=== PATIENT | female | born 1995 | race African-American/Black ===

== ENCOUNTER 2019-01-27 11:28 | Emergency (ER) | payer MEDICAID, SELFPAY ==
[~2019-01-27] VITALS: Ht 172.7 cm; Wt 72.6 kg
[~2019-01-27 11:28] MED LIST: COLACE100 MG ORAL; IBUPROFEN600 MG ORAL; NORCO 5-325 TA1 EACH ORAL; ZOFRAN ODT4 MG ORAL
--- NOTE | 2019-01-27 11:29 | NUR ---
ED Nurse Note: PT BROUGHT IN BY [id number] BUT PT IS NOT HOMELESS. AOX4. PT C/O LOWER RIGHT QUADRANT ABDOMINAL PAIN, 10/10, NAUSEA, AND 3 EPISODES OF VOMITING X THIS AM. PT STATES VOMIT HAS BEEN CLEAR. PT DENIES DIARRHEA. ACTIVE BOWEL SOUNDS IN ALL QUADRANTS. ABDOMEN NONDISTENDED AND NONTENDER TO PALPATION. LAST BM X YESTERDAY WHICH PT STATES WAS FORMED.
[2019-01-27 11:34] VITALS: BP 114/76
[2019-01-27] MEDS ORDERED: ALBUTEROL2.5 MG/3 M INH (11:46)
--- NOTE | 2019-01-27 11:50 | Emergency Room Report ---
History of Present Illness General Chief Complaint: Flu Like Symptoms Source: Patient, EMS Present Illness HPI Patient presents with complaints of diffuse abdominal discomfort nausea vomiting Reports that she also has diffuse body ache Denies any chest pain or shortness of breath Also complains of a headache Denies any neck pain or photophobia denies any fevers Denies any dysuria or frequency Patient reports that last night she felt fine when she went to bed this morning upon up aching she has started to feel more ill Allergies: Coded Allergies: No Known Allergies (Unverified , 10/06/14) Patient History Past Medical History: see triage record Pertinent Family History: none Last Menstrual Period: 12/16/18 Reviewed Nursing Documentation: PMH: Agreed; PSxH: Agreed Nursing Documentation-PMH Past Medical History: No History, Except For Hx Asthma: Yes Review of Systems All Other Systems: negative except mentioned in HPI Physical Exam Vital Signs Date Time Temp Pulse Resp B/P (MAP) Pulse Ox O2 Delivery O2 Flow Rate FiO2 01/27/19 11:25 98.2 58 16 110/70 100 Room Air Sp02 EP Interpretation: reviewed, normal General Appearance: well appearing, no apparent distress Head: normocephalic, atraumatic Eyes: bilateral eye PERRL, bilateral eye EOMI ENT: hearing grossly normal, normal pharynx, TMs + canals normal, uvula midline Neck: full range of motion, supple, no meningismus, no bony tend Respiratory: lungs clear, normal breath sounds, no rhonchi, no respiratory distress, no retraction, no accessory muscle use Cardiovascular #1: normal peripheral pulses, regular rate, rhythm, no edema, no gallop, no JVD, no murmur Gastrointestinal: normal bowel sounds, non tender, soft, no mass, no organomegaly, non-distended, no guarding, no hernia, no pulsatile mass, no rebound Genitourinary: no CVA tenderness Musculoskeletal: normal inspection Neurologic: oriented x3, responsive, systems mechanic III-XII nml as tested, motor strength/ tone normal, sensory intact Psychiatric: mood/affect normal Skin: normal color, no rash, warm/dry, palpation normal Lymphatic: normal inspection, no adenopathy Medical Decision Making Diagnostic Impression: Primary Impression: ER Course With the patient's history and examination, multiple differentials considered, including but not limited to , ectopic , ovarian torsion, gastritis, cholecystitis, pancreatitis, appendicitis Patient's urine sample does show positive therefore this was followed by ultrasound and blood work Patient does not have any vaginal bleeding type and rh was not performed Ultrasound shows 7 week And patient requires close outpatient follow-up CBC normal Chemistry showing elevated beta Quant at over 64,000 Urine sample no acute disease CT/MRI/US Diagnostic Results CT/MRI/US Diagnostic Results : Impression pelvic ultrasoundImpression: 7 week one day, by crown-rump length measurement, single live intrauterine . No unusual features Small amount of cul-de-sac fluid, presumably physiologic Last Vital Signs Date Time Temp Pulse Resp B/P (MAP) Pulse Ox O2 Delivery O2 Flow Rate FiO2 01/27/19 11:34 98.3 62 18 114/76 100 Room Air Status: improved Disposition: HOME, SELF-CARE Condition: Improved Additional Instructions: Patient is provided with the discharge instructions notified to follow up with primary doctor in the next 2-3 days otherwise return to the er with any worsening symptoms. Please note that this report is being documented using [employer] technology. This can lead to erroneous entry secondary to incorrect interpretation by the dictating instrument. Ashlee Elkins DO Jan 27, 2019 11:50
--- NOTE | 2019-01-27 12:00 | NUR ---
ED Nurse Note: BLOOD AND URINE COLLECTED AND SENT TO LAB.
[2019-01-27 12:25] LABS: BASOPHILS % (AUTO) 1.3 % (0.0-2.0); EOSINOPHILS % (AUTO) 0.5 % (0.0-3.0); HEMATOCRIT 38.4 % (37.0-47.0); HEMOGLOBIN 12.4 G/DL (12.0-16.0); LYMPHOCYTES % (AUTO) 21.4 % (20.0-45.0); MEAN CORPUSCULAR VOLUME 79 FL (80-99); MONOCYTES % (AUTO) 8.5 % (1.0-10.0); NEUTROPHILS % (AUTO) 68.2 % (45.0-75.0); PLATELET COUNT 228 K/UL (150-450); RED BLOOD COUNT 4.88 M/UL (4.20-5.40); WHITE BLOOD COUNT 5.1 K/UL (4.8-10.8)
[2019-01-27 12:26] LABS: APPEARANCE,URINE SLIGHTLY CLOUDY; BILIRUBIN, URINE NEGATIVE (NEGATIVE); GLUCOSE, URINE (UA) NEGATIVE (NEGATIVE); KETONES,URINE 4+ (NEGATIVE); LEUKOCYTE ESTERASE ,URINE 1+ (NEGATIVE); NITRITE,URINE NEGATIVE (NEGATIVE); PH,URINE 6.5 (4.5-8.0); PROTEIN,URINE 1+ (NEGATIVE); UROBILINOGEN,URINE 1 MG/DL (0.0-1.0)
[2019-01-27 12:27] LABS: COLOR,URINE YELLOW
[2019-01-27 12:28] LABS: ANION GAP 7 mmol/L (5-15); BLOOD UREA NITROGEN 9 mg/dL (7-18); CALCIUM 9.2 MG/DL (8.5-10.1); CARBON DIOXIDE 25 MMOL/L (21-32); CHLORIDE 103 MMOL/L (98-107); CREATININE 0.8 MG/DL (0.55-1.30); POTASSIUM 3.6 MMOL/L (3.5-5.1); SODIUM 135 MMOL/L (136-145)
[2019-01-27 12:33] LABS: ALANINE AMINOTRANSFERASE 15 U/L (12-78); ALBUMIN 3.7 G/DL (3.4-5.0); ALKALINE PHOSPHATASE 29 U/L (46-116); ASPARTATE AMINO TRANSFERASE 12 U/L (15-37); BILIRUBIN,TOTAL 0.3 MG/DL (0.2-1.0)
--- NOTE | 2019-01-27 14:01 | NUR ---
ED Nurse Note: pt went down for US by wheelchair.
[2019-01-27 15:05] VITALS: BP 127/78
--- NOTE | 2019-01-27 15:06 | NUR ---
ER DISCHARGE NOTE: Patient is cleared to be discharged per ERMD, pt is aox4, on room air, with stable vital signs. pt was given dc and prescription instructions, pt was able to verbalize understanding, pt id band and removed. pt is able to ambulate with steady gait. pt took all belongings.
--- NOTE | 2019-01-27 16:12 | Diagnostic Imaging Report ---
Indication: Pelvic pain, positive test Technique: Transabdominal and transvaginal images of the pelvis. Doppler interrogation of the bilateral ovaries Comparison: none Findings: There is a gestational sac within the endometrium. This contains a yolk sac and pole. It demonstrates positive heart activity, heart rate 139 bpm. pole demonstrates a crown-rump length of 10.3 mm, corresponding to an estimated gestational age of 7 weeks one day. No evidence of subchorionic hemorrhage. No myometrial abnormality. Left ovary measures 4 cm in length. The right ovary measures 4 cm in length. Both ovaries demonstrate normal blood flow. No adnexal mass.. Small amount of free posterior cul-de-sac fluid Impression: 7 week one day, by crown-rump length measurement, single live intrauterine . No unusual features Small amount of cul-de-sac fluid, presumably physiologic
== END 2019-01-27 15:10 | disposition home or self-care (01) ==
LOC: EDBD 11:28 → EMR 12:05
DX: R10.84 Generalized abdominal pain (principal); R11.2 Nausea with vomiting, unspecified; J45.909 Unspecified asthma, uncomplicated; O26.891 Other specified pregnancy related conditions, first trimester; Z3A.01 Less than 8 weeks gestation of pregnancy; R10.9 Unspecified abdominal pain; O99.511 Diseases of the respiratory system complicating pregnancy, first trimester
CPT/HCPCS: 36415; 76801; 76830; 80053; 81003; 81025; 83690; 84702; 85025; 99284

== ENCOUNTER 2019-01-29 13:20 | Emergency (ER) | payer MEDICAID ==
[~2019-01-29] VITALS: Ht 172.7 cm; Wt 72.6 kg
[~2019-01-29 13:20] MED LIST changes: +ALBUTEROL2.5 MG/3 M INH
[2019-01-29 13:29] VITALS: BP 103/71
[2019-01-29] MEDS ORDERED: Metoclopramide 10mg/2ml Inj IVP ONE (13:45)
[2019-01-29 14:08] LABS: APPEARANCE,URINE CLEAR; BILIRUBIN, URINE 1+ (NEGATIVE); GLUCOSE, URINE (UA) NEGATIVE (NEGATIVE); KETONES,URINE 4+ (NEGATIVE); LEUKOCYTE ESTERASE ,URINE 2+ (NEGATIVE); NITRITE,URINE NEGATIVE (NEGATIVE); PH,URINE 6 (4.5-8.0); PROTEIN,URINE 2+ (NEGATIVE); UROBILINOGEN,URINE 4 MG/DL (0.0-1.0)
[2019-01-29 14:16] LABS: COLOR,URINE YELLOW
--- NOTE | 2019-01-29 14:19 | NUR ---
ED Nurse Note: U/S tech contacted.
[2019-01-29 14:25] LABS: BASOPHILS % (AUTO) 2.2 % (0.0-2.0); EOSINOPHILS % (AUTO) 0.8 % (0.0-3.0); HEMATOCRIT 41.4 % (37.0-47.0); HEMOGLOBIN 13.5 G/DL (12.0-16.0); LYMPHOCYTES % (AUTO) 22.5 % (20.0-45.0); MEAN CORPUSCULAR VOLUME 79 FL (80-99); MONOCYTES % (AUTO) 12.6 % (1.0-10.0); NEUTROPHILS % (AUTO) 61.9 % (45.0-75.0); PLATELET COUNT 223 K/UL (150-450); RED BLOOD COUNT 5.26 M/UL (4.20-5.40); RED CELL DISTRIBUTION WIDTH 11.9 % (11.6-14.8); WHITE BLOOD COUNT 4.9 K/UL (4.8-10.8)
--- NOTE | 2019-01-29 14:32 | NUR ---
ED Nurse Note: pt. aaox4. ambulatory. came uin to ER due to abd pain since yesterday. pt. c/o n/v. denies diarrhea. nile and undigested food emesis reported
[2019-01-29 14:33] LABS: ANION GAP 10 mmol/L (5-15); BLOOD UREA NITROGEN 9 mg/dL (7-18); CALCIUM 9.2 MG/DL (8.5-10.1); CARBON DIOXIDE 25 MMOL/L (21-32); CHLORIDE 100 MMOL/L (98-107); CREATININE 0.8 MG/DL (0.55-1.30); POTASSIUM 3.5 MMOL/L (3.5-5.1); SODIUM 135 MMOL/L (136-145)
[2019-01-29 14:38] LABS: ALANINE AMINOTRANSFERASE 18 U/L (12-78); ALBUMIN 3.9 G/DL (3.4-5.0); ALKALINE PHOSPHATASE 28 U/L (46-116); ASPARTATE AMINO TRANSFERASE 12 U/L (15-37); BILIRUBIN,TOTAL 0.5 MG/DL (0.2-1.0)
--- NOTE | 2019-01-29 15:00 | NUR ---
ED Nurse Note: Pt. went to US
--- NOTE | 2019-01-29 15:57 | NUR ---
ED Nurse Note: Pt. returned from US
--- NOTE | 2019-01-29 16:40 | Emergency Room Report ---
History of Present Illness General Chief Complaint: General Complaint Source: Patient Present Illness HPI 23-year-old female with no significant past medical history here complaining of abdominal pain during . Patient was told that she is by [facility] ER 2 days ago. OB ultrasound and appropriate blood work were done. Patient complains of continuous pain and mentions that she has not been able to make an appointment with [facility]. Denies vaginal bleeding or spotting. Denies a loss of consciousness or syncope however complains of shortness of breath when walking. Denies cramping in length. Complaints of nausea and has not been able to eat anything for the past 2 days. Denies chest pain, palpitation, vaginal discharge, no other associated symptoms. Allergies: Coded Allergies: No Known Allergies (Unverified , 10/06/14) Patient History Past Medical History: see triage record Past Surgical History: none Last Menstrual Period: 12/2018 Now: Yes : 2 Para: 1 Reviewed Nursing Documentation: PMH: Agreed; PSxH: Agreed Nursing Documentation-PMH Past Medical History: No History, Except For Hx Asthma: Yes Review of Systems All Other Systems: negative except mentioned in HPI Physical Exam Vital Signs Date Time Temp Pulse Resp B/P (MAP) Pulse Ox O2 Delivery O2 Flow Rate FiO2 01/29/19 13:29 97 16 Room Air 01/29/19 13:29 96.8 103/71 95 Sp02 EP Interpretation: reviewed, normal General Appearance: normal inspection, well appearing, no apparent distress Head: normocephalic, atraumatic Eyes: bilateral eye normal inspection, bilateral eye PERRL ENT: normal ENT inspection, hearing grossly normal, normal pharynx, normal voice Neck: normal inspection, full range of motion, supple Respiratory: normal inspection, chest non-tender, lungs clear, normal breath sounds, no rhonchi, no respiratory distress, no wheezing Cardiovascular #1: normal inspection, normal peripheral pulses, regular rate, rhythm, no gallop, no JVD, no murmur Cardiovascular #2: 2+ radial (R), 2+ radial (L) Gastrointestinal: normal inspection, soft, no mass, no organomegaly, no peritonitis, non-distended, no guarding, no pulsatile mass Rectal: deferred Genitourinary: no CVA tenderness Musculoskeletal: normal inspection, back normal, digits/nails normal, gait/ station normal, non-tender, no calf tenderness Neurologic: normal inspection, alert, oriented x3 Psychiatric: normal inspection, judgement/insight normal Skin: normal inspection, normal color, no rash, warm/dry Lymphatic: normal inspection, no adenopathy Medical Decision Making PA Attestation all diagnosis and treatment plans were reviewed and discussed with my supervising physican Dr. Hobson Diagnostic Impression: Primary Impression: Abdominal pain affecting Additional Impression: UTI (urinary tract infection) during ER Course 23-year-old female with no significant past medical history here complaining of abdominal pain during . Patient was told that she is by [facility] ER 2 days ago. OB ultrasound and appropriate blood work were done. Patient complains of continuous pain and mentions that she has not been able to make an appointment with [facility]. Denies vaginal bleeding or spotting. Denies a loss of consciousness or syncope however complains of shortness of breath when walking. Denies cramping in length. Complaints of nausea and has not been able to eat anything for the past 2 days. Denies chest pain, palpitation, vaginal discharge, no other associated symptoms. Ddx considered but are not limited to ectopic , miscarriage, UTI Vital signs: are WNL, pt. is afebrile H&PE are most consistent with UTI and abd pain in ORDERS: abdominal and pelvic US, CBC, CMp, lipase, UA, urine preg, beta HCG ED INTERVENTIONS: IV NS bolus, reglan DISCHARGE: At this time pt. is stable for d/c to home. Will provide printed patient care instructions, and any necessary prescriptions. Care plan and follow up instructions have been discussed with the patient prior to discharge. All lab results are comparable to previous results from 2 days ago. Patient to follow-up with [facility] and further assessment and asked for nausea medication are not usually safe in .all lab results are comparable to previous results from 2 days ago. Patient to follow with [facility] and further assessment and asked for nausea medication and there are not usually safe in . urine leuk positive CT/MRI/US Diagnostic Results CT/MRI/US Diagnostic Results : Imaging Test Ordered: abdomen and pelvis Impression US PELVIS: IUP measuring 7 weeks 0 days with heart rate of 151 BPM. US ABDOMEN: Unremarkable exam. Specifically, no gallstones or other biliary pathology. Last Vital Signs Date Time Temp Pulse Resp B/P (MAP) Pulse Ox O2 Delivery O2 Flow Rate FiO2 01/29/19 13:29 96.8 97 16 103/71 95 Room Air Disposition: HOME, SELF-CARE Condition: Stable Scripts Vit37/Iron/Folic Acid (PRENATA CHEWABLE TABLET) 1 Each Tab.chew 1 EACH PO DAILY, #30 TAB Prov: Andre Collado 01/29/19 Acetaminophen (Tylenol) 325 Mg Capsule 325 MG PO THREE TIMES A DAY PRN for tid, #30 CAP Prov: Andre Collado 01/29/19 Nitrofurantoin Monohyd/M-Cryst* (MACROBID 100 MG*) 100 Mg Capsule 100 MG ORAL EVERY 12 HOURS for 7 Days, #14 CAP Prov: Andre Collado 01/29/19 Referrals: [facility],REFERRING (PCP) Patient Instructions: Abdominal Pain During , [id number], Urinary Tract Infection, [id number] Additional Instructions: See OB/GYYN and ask for nausea medication as it needs to be controlled by the specialist that he can be harmful to your . If any vaginal bleeding or spotting return to the emergency room for ultrasound.and asked for a nausea medication as it . If any vaginal bleeding or spotting return to ER. take vitamins at night Andre Collado Jan 29, 2019 16:40
[2019-01-29] MEDS ORDERED: PRENATA CHEWAB1 EACH PO (16:43)
[2019-01-29] MEDS ORDERED: NITROFURANTOIN100 M2 ORAL (16:43)
[2019-01-29] MEDS ORDERED: TYLENOL325 M1 PO (16:43)
[2019-01-29 16:51] VITALS: BP 112/68
--- NOTE | 2019-01-29 16:53 | NUR ---
ER DISCHARGE NOTE: Patient is cleared to be discharged per ERMD, pt is aox4, on room air, with stable vital signs. pt was given dc and prescription instructions, pt was able to verbalize understanding, pt id band and iv site removed without complications. pt is able to ambulate with steady gait. pt took all belongings.
--- NOTE | 2019-01-30 10:48 | Diagnostic Imaging Report ---
Indication: Abdominal pain Technique: Goodwin-scale and duplex images of the upper abdomen were obtained Comparison: none Findings: Gallbladder is unremarkable, without stones, wall thickening, nor pericholecystic fluid. Sonographic Kay's sign is negative. Common bile duct measures 5 mm in diameter. No intrahepatic biliary ductal dilatation. Liver demonstrates normal echogenicity, no focal abnormality. Portal vein and hepatic veins are patent. Pancreas is unremarkable. Spleen is unremarkable. Left kidney measures 10.5 cm in length. Right kidney measures 10.8 cm length. Both kidneys demonstrate normal echogenicity. There is no hydronephrosis. No focal abnormality . Non-aneurysmal abdominal aorta . Impression: Negative This agrees with the preliminary interpretation provided overnight by [employer] teleradiology service.
--- NOTE | 2019-01-30 11:12 | Diagnostic Imaging Report ---
Indication: Abdominal pain, pelvic pain,, positive test Technique: Transabdominal and transvaginal images. Doppler interrogation of the bilateral ovaries Comparison: 01/27/2019 Findings: Uterus measures 9 cm length by 5.3 cm AP. Within the endometrium, there is a gestational sac. This contains a pole with a crown-rump length of 9 mm, corresponding to an assessment gestational age of 6 weeks 6 days. There is positive heart activity, heart rate 153 bpm. A yolk sac is also demonstrated. No evidence of subchorionic hemorrhage. No myometrial abnormality. Right ovary measures 5 cm length. Left ovary measures 3.2 cm length. No adnexal mass. No free cul-de-sac fluid. No significant interim change other than previously demonstrated free cul-de-sac fluid is no longer evident Impression: 6 week 6 day, by crown-rump length measurement, single live intrauterine . No unusual features. No significant mash filter cloth changer 2 days. Slight discrepancy in crown-rump length measurement probably just represents measurement error, follow-up sonography and correlation with serial beta hCGs is recommended. This agrees with the preliminary interpretation provided overnight by [facility] teleradiology service.
== END 2019-01-29 16:51 | disposition home or self-care (01) ==
LOC: EMR 13:59
DX: O23.41 Unspecified infection of urinary tract in pregnancy, first trimester (principal); Z3A.01 Less than 8 weeks gestation of pregnancy
CPT/HCPCS: 36415; 76700; 76801; 80053; 81001; 81025; 83690; 84702; 85025; 96361; 96374; 99284; J2765; 76856

== ENCOUNTER 2019-10-28 13:00 | Emergency (ER) | payer MEDICAID ==
[~2019-10-28] VITALS: Ht 165.1 cm; Wt 59.0 kg
[~2019-10-28 13:00] MED LIST changes: +NITROFURANTOIN100 M2 ORAL; +PRENATA CHEWAB1 EACH PO; +TYLENOL325 M1 PO
--- NOTE | 2019-10-28 13:48 | NUR ---
ED Nurse Note:urine sent to labs
[2019-10-28 13:49] VITALS: BP 120/80
[2019-10-28 14:02] LABS: APPEARANCE,URINE SLIGHTLY CLOUDY; BILIRUBIN, URINE NEGATIVE (NEGATIVE); COLOR,URINE PALE YELLOW; GLUCOSE, URINE (UA) NEGATIVE (NEGATIVE); KETONES,URINE NEGATIVE (NEGATIVE); LEUKOCYTE ESTERASE ,URINE 2+ (NEGATIVE); NITRITE,URINE NEGATIVE (NEGATIVE); PH,URINE 7 (4.5-8.0); PROTEIN,URINE NEGATIVE (NEGATIVE); UROBILINOGEN,URINE NORMAL MG/DL (0.0-1.0)
[2019-10-28 14:30] VITALS: BP 120/80
--- NOTE | 2019-10-28 14:30 | NUR ---
ER DISCHARGE NOTE: Patient is cleared to be discharged per ERMD, pt is aox4, on room air, with stable vital signs. pt was given dc and prescription instructions, pt was able to verbalize understanding, pt is able to ambulate with steady gait. pt took all belongings.
[2019-10-28] MEDS ORDERED: NITROFURANTOIN100 M2 ORAL (14:33)
--- NOTE | 2019-10-28 15:42 | Emergency Room Report ---
History of Present Illness General Chief Complaint: General Complaint Source: Patient Present Illness HPI 24 YO female presents to the ED brought by ambulance for 4/10 in severity lower abdominal pain x 1 day. Denies N/V/F/C, constipation or diarrhea. Pt. denies . Denies dysuria, hematuria, frequency or urgency. Pt. denies vaginal pain or d/c. She denies suspicion for STI. No other aggravating or relieving factors at this time. Allergies: Coded Allergies: No Known Allergies (Unverified , 10/06/14) Patient History Past Medical History: see triage record Past Surgical History: none Pertinent Family History: none Now: No Reviewed Nursing Documentation: PMH: Agreed; PSxH: Agreed Nursing Documentation-PMH Hx Asthma: Yes Review of Systems All Other Systems: negative except mentioned in HPI Physical Exam Vital Signs Date Time Temp Pulse Resp B/P (MAP) Pulse Ox O2 Delivery O2 Flow Rate FiO2 10/28/19 12:53 97.9 72 16 120/80 (93) 98 Room Air Sp02 EP Interpretation: reviewed, normal General Appearance: no apparent distress, alert, GCS 15, non-toxic Head: normocephalic, atraumatic Eyes: bilateral eye normal inspection, bilateral eye PERRL ENT: hearing grossly normal, normal voice Neck: full range of motion Respiratory: lungs clear, normal breath sounds, speaking full sentences Cardiovascular #1: regular rate, rhythm Gastrointestinal: normal bowel sounds, non tender, soft, non-distended, no guarding Genitourinary: normal inspection, no CVA tenderness Musculoskeletal: back normal, normal range of motion, gait/station normal, non- tender Neurologic: alert, motor strength/tone normal, oriented x3, sensory intact, responsive, speech normal Psychiatric: judgement/insight normal Medical Decision Making PA Attestation Dr. Chakraborty Is my supervising Physician whom patient management has been discussed with. Diagnostic Impression: Primary Impression: UTI (urinary tract infection) Qualified Codes: N30.01 - Acute cystitis with hematuria ER Course 24 YO female presents to the ED brought by ambulance for 4/10 in severity lower abdominal pain x 1 day. Denies N/V/F/C, constipation or diarrhea. Pt. denies . Denies dysuria, hematuria, frequency or urgency. Pt. denies vaginal pain or d/c. She denies suspicion for STI. No other aggravating or relieving factors at this time. Ddx considered but are not limited to UTi , Pyelo, STI, Stone, Cystitis, Vital signs: are WNL, pt. is afebrile H&PE are most consistent with UTI ORDERS: - UA labs are attached - positive for UTI ED INTERVENTIONS: None required at this time. DISCHARGE: At this time pt. is stable for d/c to home. Will provide printed patient care instructions, and any necessary prescriptions. Care plan and follow up instructions have been discussed with the patient prior to discharge. Labs Test 10/28/19 13:30 Urine Color Pale yellow Urine Appearance Slightly cloudy Urine pH 7 (4.5-8.0) Urine Specific [place] 1.010 (1.005-1.035) Urine Protein Negative (NEGATIVE) Urine Glucose (UA) Negative (NEGATIVE) Urine Ketones Negative (NEGATIVE) Urine Blood 1+ (NEGATIVE) Urine Nitrite Negative (NEGATIVE) Urine Bilirubin Negative (NEGATIVE) Urine Urobilinogen Normal MG/DL (0.0-1.0) Urine Leukocyte Esterase 2+ (NEGATIVE) Urine RBC 2-4 /HPF (0 - 2) Urine WBC 5-10 /HPF (0 - 2) Urine Squamous Epithelial Cells Moderate /LPF (NONE/OCC) Urine Amorphous Sediment Few /LPF (NONE) Urine Bacteria Few /HPF (NONE) Urine HCG, Qualitative Negative (NEGATIVE) Last Vital Signs Date Time Temp Pulse Resp B/P (MAP) Pulse Ox O2 Delivery O2 Flow Rate FiO2 10/28/19 14:30 97.9 72 16 120/80 98 Room Air Disposition: HOME, SELF-CARE Condition: Stable Scripts Nitrofurantoin Monohyd/M-Cryst* (MACROBID 100 MG*) 100 Mg Capsule 100 MG ORAL EVERY 12 HOURS for 5 Days, #10 CAP Prov: Bonnie Ibarra 10/28/19 Patient Instructions: Urinary Tract Infection, [id number] Additional Instructions: Take medications as directed. Follow up with a Primary Care Provider in 3-5 days, even if your symptoms have resolved. --Please review list of primary care clinics, if you do not already have a primary care provider Return sooner to ED if new symptoms occur, or current symptoms become worse. - Please note that this Emergency Department Report was dictated using [employer] sales specialist technology software, occasionally this can lead to erroneous entry secondary to interpretation by the dictation equipment. Bonnie Ibarra Oct 28, 2019 15:42
== END 2019-10-28 14:30 | disposition home or self-care (01) ==
LOC: EDBD 13:00 → EMR 13:46
DX: N30.01 Acute cystitis with hematuria (principal)
CPT/HCPCS: 81003; 81025; Z7502; 99283